=== PATIENT | female | born 1995 ===

== ENCOUNTER 2017-07-06 21:41 | Emergency (ER) | payer OTHER ==
[2017-07-06] MEDS ORDERED: Lidocaine 1% MPF* 2 ML VIAL INJ ONE (21:51)
--- NOTE | 2017-07-06 21:54 | ED ---
Laceration/Wound HPI - HPI Summary HPI Summary: 21 female presents with left leg laceration today. She states she sustained over 12 hours ago. She states she hit a tree branch into her leg. She denies any foreign body and states she cleaned the wound. She states that the area is actively bleeding. She is able to ambulate. Tetanus up-to-date. - History of Current Complaint Stated Complaint: LEG LACERATION Time Seen by Provider: 07/06/17 21:52 Hx Last Menstrual Period: 1 MONTH AGO Pain Intensity: 4 - Allergy/Home Medications Allergies/Adverse Reactions: Allergies Allergy/AdvReac Type Severity Reaction Status Date / Time No Known Allergies Allergy Verified 07/06/17 21:51 Home Medications: Home Medications Control* 1 tab PO DAILY 07/06/17 [History Confirmed 07/06/17] Ibuprofen TAB* [Advil TAB*] 400 mg PO ONCE PRN 07/06/17 [History Confirmed 07/06] PMH/Surg Hx/FS Hx/Imm Hx Endocrine/Hematology History: Denies: Hx Anticoagulant Therapy Respiratory History: Reports: Hx Asthma - Surgical History Surgery Procedure, Year, and Place: SURGERY ON FOREHEAD Infectious Disease History: No Infectious Disease History: Denies: Traveled Outside the [place] in Last 30 Days - Family History Known Family History: Negative: Diabetes - Social History Alcohol Use: Occasionally Substance Use Type: Reports: None Smoking Status (MU): Never Smoked Tobacco Review of Systems Negative: Fever Negative: Chest Pain Negative: Shortness Of Breath Positive: Other - laceration left leg All Other Systems Reviewed And Are Negative: Yes Physical Exam Triage Information Reviewed: Yes Vital Signs On Initial Exam: Initial Vitals Temp Pulse Resp BP Pulse Ox 98.1 F 77 16 107/63 100 07/06/17 21:47 07/06/17 21:47 07/06/17 21:47 07/06/17 21:47 07/06/17 21:47 Vital Signs Reviewed: Yes Appearance: Positive: Well-Appearing Skin: Positive: Warm, Dry, Other - 4cm superficial laceration of left posterior thigh Head/Face: Positive: Normal Head/Face Inspection Eyes: Positive: Normal, Conjunctiva Clear Respiratory/Lung Sounds: Positive: Clear to Auscultation, Breath Sounds Present Cardiovascular: Positive: Normal, RRR Musculoskeletal: Positive: Strength/ROM Intact - left leg, Other - good pulses Neurological: Positive: Normal Psychiatric: Positive: Normal Procedures - Laceration/Wound Repair 1 Location: Other - left thigh Description: Linear Length, Depth and Shape: 4cm superficial Irrigated w/ Saline (ccs): 300 Closure: SteriStrips Diagnostics - Vital Signs Vital Signs Temp Pulse Resp BP Pulse Ox 07/06/17 21:47 98.1 F 77 16 107/63 100 - Laboratory Lab Statement: Any lab studies that have been ordered have been reviewed, and results considered in the medical decision making process. Laceration Repair Course/Dx - Course Course Of Treatment: 21 female presents with left leg laceration today. She states she sustained over 12 hours ago. She states she hit a tree branch into her leg. She denies any foreign body and states she cleaned the wound. She states that the area is actively bleeding. She is able to ambulate. Tetanus up -to-date. On exam has a 4 cm superficial laceration of left posterior thigh. Due to being greater than 12 hours cannot close. Clean area and place Steri- Strips. Patient understands agrees with plan. - Differential Dx Differental Diagnoses: Abrasion, Avulsion, Laceration - Clinical Impression Provider Diagnoses: Laceration Discharge - Sign-Out/Discharge Documenting (check all that apply): Discharge/Admit/Transfer - Discharge Plan Condition: Good Disposition: HOME Patient Education Materials: Laceration Without Closure (ED) Referrals: No Primary Care Phys,NOPCP [Primary Care Provider] - Additional Instructions: Keep area clean wash with soap and water once a day Return to ED if develop any new or worsening symptoms - Billing Disposition and Condition Condition: GOOD Disposition: HOME
== END 2017-07-06 22:05 | disposition home or self-care (01) ==
LOC: UCEAST 21:41
DX: S71.112A Laceration without foreign body, left thigh, initial encounter (principal); W22.8XXA Striking against or struck by other objects, initial encounter; Y93.9 Activity, unspecified; Y92.9 Unspecified place or not applicable; J45.909 Unspecified asthma, uncomplicated
CPT/HCPCS: 99202; G0463